=== PATIENT | male | born 1955 | race American Indian/Alaskan Native ===

== ENCOUNTER → 2024-05-06 | Outpatient (CLI) | payer MEDICARE, OTHER, MEDICAID, SELFPAY ==
--- NOTE | 2024-05-06 08:30 | XR_ITS ---
Examination: CT cervical spine without contrast 2-D sagittal reconstructions 2-D coronal reconstructions 3-D reconstructions. Exam date and time:May 06, 2024 0915 hours Comparison 01/30/2020 INDICATIONS: Neck pain beginning 2 years ago CTDI:vol (mGy) 12.7 DLP: (mGycm) 261 Technique: Multiple 2 mm axial sections of the cervical spine have been obtained. The coronal and sagittal reconstructions have been obtained. 3-D reconstructions have been obtained. Low dose protocols were performed. One or more of the following dose reduction techniques were used; automated exposure control, adjustment of the mA and/or KV according to patient size, use of iterative reconstruction technique. Findings: Interval cervical stabilization and laminectomies C3-C6 Interval anterolisthesis C3 on C4 4 mm producing spinal stenosis C4-C5 moderate bilateral neural foraminal stenosis C5-C6 advanced bilateral neural foraminal stenosis Advanced disc narrowing C5-C6, C6-C7 Fusion C3-C4 No acute cervical fracture. IMPRESSION: Interval cervical orthopedic stabilization and laminectomy C3-C6 Cervical fusion C3-C4 Anterolisthesis C3 on C4 4 mm producing spinal stenosis C4-C5 moderate bilateral neural foraminal stenosis C5-C6 advanced bilateral neural foraminal stenosis Consider MRI cervical spine follow-up to assess full extent of cervical spinal stenosis
== END | disposition home or self-care (01) ==
PROVIDERS: PCP Nurse Practitioner; Referring Provider Nurse Practitioner; Visit Provider Nurse Practitioner
DX: M48.02 Spinal stenosis, cervical region (principal)
CPT/HCPCS: 72125

== ENCOUNTER → 2024-06-25 | Outpatient (CLI) | payer MEDICARE, OTHER, MEDICAID, SELFPAY ==
--- NOTE | 2024-06-25 15:41 | XR_ITS ---
Examination: AP lateral chest 2 views TECHNIQUE: Upright AP lateral chest 2 views Exam date and time: June 25, 2024 1619 hours INDICATIONS: Diagnosis coccidiomycosis FINDINGS: Minimal scarring in the right upper lobe No pneumonia or pulmonary edema No mediastinal lymphadenopathy Normal heart size Moderate hyperexpansion Scarring in the lingular segment Calcified granuloma right lower lobe IMPRESSION: Moderate hyperexpansion No current pneumonia
== END | disposition home or self-care (01) ==
LOC: CDIM 15:37
PROVIDERS: Referring Provider Nurse Practitioner; Visit Provider Nurse Practitioner
DX: J98.4 Other disorders of lung (principal)
CPT/HCPCS: 71046

== ENCOUNTER → 2025-04-27 | Outpatient (CLI) | payer OTHER, SELFPAY ==
--- NOTE | 2025-04-27 12:40 | XR_ITS ---
Examination: Bone densitometry Date and time of exam: April 27, 2025, 1321 hours INDICATIONS: 69-year-old male with diagnosis age-related osteoporosis, smoking history history rheumatoid arthritis Technique: Lumbar spine and hip total bone mineralization values of an calculated. Peak reference and age match control results have been displayed. Findings: Lumbar spine total bone mineralization is 0.847 gm/cm2. This is 2.2 standard deviations below peak reference. This is 1.4 standard deviations below age-matched controls. Hip total bone mineralization is 0.813 gm/cm2 This is 1.5 standard deviations below peak reference. This is 0.8 standard deviations below age-matched controls Impression: There is osteopenia based on lumbar spine measurements. There is osteopenia based on hip measurements
== END | disposition home or self-care (01) ==
PROVIDERS: Referring Provider Family Medicine; Visit Provider Family Medicine
DX: M85.89 Other specified disorders of bone density and structure, multiple sites (principal)
CPT/HCPCS: 77080